=== PATIENT | female | born 1985 | race Caucasian/White ===

== ENCOUNTER 2023-05-25 20:44 | Inpatient (IN) | payer BC ==
[2023-05-25] MEDS ORDERED: Penicillin G Potassium 5 MILL.UNITS VIAL ONE (21:14)
[2023-05-25] MEDS ORDERED: Acetaminophen 500 MG TAB PO PRN (21:55)
[2023-05-25] MEDS ORDERED: Promethazine HCl 25 MG/ML VIAL IM PRN (21:55)
[2023-05-25] MEDS ORDERED: Butorphanol Tartrate 1 MG/ML VIAL SLOW IVP PRN (21:55)
[2023-05-25] MEDS ORDERED: Lidocaine 1% (PF) 30 ML VIAL SC PRN (21:55)
[2023-05-25] MEDS ORDERED: Ondansetron PF 4 MG/2 ML Vial IVP PRN (21:55)
[2023-05-25] MEDS ORDERED: hydrALAZINE 20 MG/ML VIAL SLOW IVP PRN (21:55)
[2023-05-25] MEDS ORDERED: Lactated Ringer's 1,000 ML IV SCH (22:00)
[2023-05-25] MEDS ORDERED: NS w/ Oxytocin 30 units 500 ML IV SCH (22:00)
[2023-05-25] MEDS ORDERED: Penicillin G Potassium 5 MILL.UNITS in Sodium Chloride 0.9% 100 ML IVPB SCH (22:00)
[2023-05-25 22:33] LABS: HBSAg Index 0.16 S/CO (0-0.99); Hep B Surf Ag - L&D Non-Reactive S/CO (NonReactive); Syphilis Antibody Nonreactive (Nonreactive); Syphilis Antibody Index 0.04 S/CO (<1.00 Non-Reactive)
[2023-05-25 22:36] LABS: Hematocrit 41.3 % (34.9-44.5); Hemoglobin 14.5 g/dL (12.0-15.5); Mean Corpuscular HGB CONC 35.1 g/dL (32.0-36.0); Mean Corpuscular Hemoglobin 30.7 pg (27.0-33.0); Mean Corpuscular Volume 87.5 fl (81.6-98.3); Platelet Count 205 10x3/uL (150-450); RBC Distribution Width 12.4 % (11.5-14.5); Red Blood Cell (RBC) Count 4.72 10x6/uL (3.90-5.03); White Blood Cell (WBC) Count 10.5 10x3/uL (3.5-10.5)
[2023-05-25 23:52] VITALS: BMI 27.9
[2023-05-26] MEDS ORDERED: Milk Of Magnesia 30 ML UDCUP PO PRN (01:25)
[2023-05-26] MEDS ORDERED: Boostrix 0.5 ML (Tdap) VIAL (>/=7 yrs of age) IM ONE (01:25)
[2023-05-26] MEDS ORDERED: Lanolin Ointment 7 GM TUBE TOP PRN (01:25)
[2023-05-26] MEDS ORDERED: Bisacodyl 10 MG SUPP PR PRN (01:25)
[2023-05-26] MEDS ORDERED: Ondansetron PF 4 MG/2 ML Vial IVP PRN (01:25)
[2023-05-26] MEDS ORDERED: Benzocaine-Menthol 82.5 ML CAN TOP PRN (01:25)
[2023-05-26] MEDS ORDERED: hydrALAZINE 20 MG/ML VIAL SLOW IVP PRN (01:25)
[2023-05-26] MEDS ORDERED: Penicillin G 2.5 MILL.units 2.5 MILL.UNITS in Premix Bag 1 BAG IVPB SCH (02:00)
[2023-05-26] MEDS: Ibuprofen 800 MG TAB PO SCH ×3 (05:33→21:52)
[2023-05-26] MEDS: Docusate 100 MG CAP PO SCH ×2 (08:46→21:52)
[2023-05-26] MEDS: Prenatal Vitamin 1 TAB PO SCH (08:46)
[2023-05-26] MEDS: Ferrous Sulfate 325 MG TAB PO SCH ×2 (08:48→19:08)
[2023-05-27] MEDS: Ibuprofen 800 MG TAB PO SCH ×3 (05:20→21:10)
[2023-05-27] MEDS: Prenatal Vitamin 1 TAB PO SCH (07:54)
[2023-05-27] MEDS: Docusate 100 MG CAP PO SCH ×2 (07:54→21:10)
[2023-05-27] MEDS: Ferrous Sulfate 325 MG TAB PO SCH ×2 (07:55→16:51)
[2023-05-27 22:39] VITALS: BP 133/82; TEMP 98.6
== END 2023-05-27 22:06 | disposition home or self-care (01) | DRG 807 ==
LOC: CSHLD/OP 20:44 → CSHLD 21:55 → CSHPP 05-26 00:50
PROVIDERS: ADMIT Obstetrics & Gynecology; ATTEND Obstetrics & Gynecology
PROC: 10E0XZZ Delivery of Products of Conception, External Approach (ICD-10-PCS; principal; 2023-05-25)
DX: O69.81X0 Labor and delivery complicated by cord around neck, without compression, not applicable or unspecified (principal); Z37.0 Single live birth; O99.824 Streptococcus B carrier state complicating childbirth; Z3A.39 39 weeks gestation of pregnancy
CPT/HCPCS: 85027; 86780; 86850; 86900; 86901; 87340; 99285; J2540; J2590